=== PATIENT | female | born 1955 | race Caucasian/White ===

== ENCOUNTER 2018-04-10 11:28 | Inpatient (IN) ==
[2018-04-10] MEDS ORDERED: Ringers Solution, Lactated 1,000 ML IVC SCH (12:00)
--- NOTE | 2018-04-10 12:44 | History & Physical Report ---
Date of Encounter: 04/10/18 Time of Encounter: 12:35 24 Hour HP Update - Instructions Instructions: If the History and Physical is less than 30 days old and was completed prior to A.M. admission and or procedure and has NOT been updated on calendar day of procedure please complete this update prior to performing procedure. - Update Patient reports changes in Medical Condition: No Changes in examination, assessment, or condition: No Changes in Medication: No Preop tests/diagnostics Reviewed: Yes Surgery Remains Indicated: Yes Consent for Planned Operative Procedure(s) Verified: Yes - Attending Attestation proceed says she is ready for surgery a little nervous. 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 reviewed procedure, risks vs benefits potential complications and consequences of surgery and her condition. no guarantees made as to the outcome. proceed as planned.
[2018-04-10] MEDS ORDERED: Famotidine 20 MG/2 ML VIAL IVP ONE (12:57)
[2018-04-10] MEDS ORDERED: cloNIDine HCl 0.1 MG TABLET PO ONE ×2 (12:57→17:44)
[2018-04-10] MEDS ORDERED: Pregabalin 75 MG CAPSULE PO ONE (12:58)
[2018-04-10] MEDS ORDERED: Acetaminophen IV 1,000 MG/100 ML INFUS..BTL IVPB ONE ×2 (12:58→18:20)
--- NOTE | 2018-04-10 13:03 | Anesthesia Evaluation PreOp ---
Date of Encounter: 04/10/18 Time of Encounter: 13:01 - Past History Planned Operation: R-ankle fusion, bone harvest, contracture release Cardiac History: CHF (hospitalized for exacerbaton x 1 [2014]), HTN Pulmonary History: Former smoker (quit 2010), Asthma (Probable RAD, Hx recurrent bRonchitis), NANCY Dx (probable but undiagnosed) MANAGER LEASING History: Other (Anxiety/Depression/Migraines, Fibromyalgia, Sural neuropathy) Other Medical History: Renal (neurogenic bladder), Diabetes Type II, Thyroid, GERD, Other (IBS) Anesthesia History: No Prior Anesthetic Complications, Past Anesthesia (L-foot surgery, Appy, Thyroid surgery, T&A,) Alcohol Use: none Drug use: none Medications and Allergies Cholecalciferol (D-3) [Vitamin D] 1,000 unit PO DAILY 04/10/18 [History] Cyclobenzaprine HCl 5 mg PO TID PRN 04/10/18 [History] Gabapentin [Neurontin] 300 mg PO TID PRN 04/10/18 [History] HYDROcodone/Acet 5/325 mg [[place] 5-325 mg] 1 tab PO BID PRN 04/10/18 [History] Levothyroxine [Synthroid] 100 mcg PO 0630 04/10/18 [History] Lisinopril-HCTZ 20-12.5 [Prinzide 20-12.5] 1 tab PO DAILY 04/10/18 [History] Metformin HCl 500 mg PO BID 04/10/18 [History] Omeprazole/Sodium Bicarbonate [Zegerid Otc 20-1,100 mg Cap] 1 cap PO DAILY PRN 04/10/18 [History] Oxybutynin [Ditropan] 5 mg PO QID 04/10/18 [History] clonazePAM [Clonazepam] 0.5 mg PO BID PRN 04/10/18 [History] Allergy/AdvReac Type Severity Reaction Status Date / Time acetaminophen [From Percocet] Allergy Vomiting Verified 02/05/18 13:58 aspirin Allergy Swelling Verified 04/10/18 12:56 of Lip/Tongue/Throat clarithromycin [From Biaxin] Allergy Hives Verified 04/10/18 12:56 Oxycodone [From Percocet] Allergy Vomiting Verified 02/05/18 13:58 Penicillins [PCN] Allergy Blister Verified 04/10/18 12:56 Sulfa (Sulfonamide Allergy Hives Verified 04/10/18 12:56 Antibiotics) - Meds/Allergy Pre-op Review Medications Reviewed: Yes Allergies Reviewed: Yes Beta Blockers on Current Med List: No Anesthesia Results - Labs Laboratory Tests 03/31/18 03/31/18 03/31/18 10:55 10:55 10:55 WBC 10.2 Hgb 14.7 Hct 45.3 H Plt Count 252 Sodium 140 Potassium 3.8 Chloride 101 Carbon Dioxide 29 BUN 20 Est GFR (Non-Af Amer) > 60 Glucose 128 H Est Mean Plasma Glucose 131 Hemoglobin A1c 6.2 H Anesthesia Exam O2 Sat Height 1.7 m Height 1.7 m Height 1.7 m Weight 181.437 kg Weight 181.437 kg Weight 181.437 kg O2 Sat by Pulse Oximetry 95 Vital Signs Temp Pulse Resp BP Pulse Ox 97.9 F 94 18 179/86 95 04/10/18 11:56 04/10/18 11:56 04/10/18 11:56 04/10/18 11:56 04/10/18 11:56 Height: 5'7" Weight: 400# BMI = 62.6 NPO (# of Hours): MNoc - HEENT Pupil (Motor): Pupils equal, EOMI Mallampati: III Teeth: Poor dentition Oral Opening: Greater than 3 - MANAGER LEASING LOC: Oriented MANAGER LEASING Motor: Normal RUE, Normal LUE, Normal LLE, Normal Face, Deficit RLE MANAGER LEASING Sensory: Normal: RUE, LUE, LLE, Face, Deficit: RLE - Cardiac Rhythm: Regular Murmur: None - Pulmonary Breath Sounds: bilateral Clear (dimished ) Respiratory Effort: Symmetrical Anesthesia Assess/Plan ASA Score: 4 (Super MO/BMI >62, HTN, DM, Anxiety/Depression/Fibromyalgia) Modified Jose Luis Scale for Level of Consciousness: Cooperative, oriented, and tranquil Anesthetic Plan: General Monitoring Plan: Standard Monitors Recovery Plan: PACU Anes Supervising Prov Stmt: PT seen/evaluated, R&B discussed, questions answered and consent obtained. Thuan Perez MD
[2018-04-10] MEDS ORDERED: *HR* FentaNYL (PF) 100 MCG/2 ML VIAL ONE (13:23)
[2018-04-10] MEDS ORDERED: *HR* Propofol 200 MG/20 ML VIAL IVP ONE ×2 (13:23→16:51)
[2018-04-10] MEDS ORDERED: *HR* Midazolam HCl 2 MG/2 ML VIAL ONE (13:23)
[2018-04-10] MEDS ORDERED: Ondansetron 4 MG/2 ML VIAL ONE (13:25)
[2018-04-10] MEDS ORDERED: Lidocaine -MPF 2% 2 ML VIAL ONE (13:25)
[2018-04-10] MEDS ORDERED: Dexamethasone 4 MG/ML VIAL ONE (13:25)
[2018-04-10] MEDS ORDERED: ROPIVACAINE HCL/PF 0.5% 30 ML VIAL ONE (13:33)
[2018-04-10] MEDS ORDERED: Tetracaine/PF 20 MG/2 ML AMPUL ONE (13:33)
[2018-04-10] MEDS ORDERED: Bupivacaine/Clonidine Syringe 1 EACH SYRINGE ONE (13:33)
[2018-04-10] MEDS ORDERED: Bupivacaine/EPI 1:200k 0.25%PF 30 ML VIAL ONE (13:42)
[2018-04-10] MEDS ORDERED: *HR* HYDROmorphone (PF) 1 MG/ML SYRINGE IVP PRN ×3 (13:44→18:20)
[2018-04-10] MEDS ORDERED: Ondansetron 4 MG/2 ML VIAL IVP ONE ×2 (13:44→18:20)
[2018-04-10] MEDS ORDERED: *HR* HYDROmorphone 2 MG TABLET PO PRN (13:44)
[2018-04-10] MEDS ORDERED: Clindamycin 900 MG/50 ML 900 MG/50 ML IV.SOLN IVPB ONE (13:55)
[2018-04-10] MEDS ORDERED: *HR* PHENYLEPHRINE 1,000 MCG/10 ML SYRINGE IVP ONE (14:01)
[2018-04-10] MEDS ORDERED: EPHEDrine 50 MG/ML VIAL ONE (14:37)
--- NOTE | 2018-04-10 15:12 | Anesthesia Procedures ---
Date of Encounter: 04/10/18 Time of Encounter: 13:50 Procedures: Anesthesia - Nerve Block Procedure Date: 04/10/18 Time: 13:50 Allergies/Adv Reactions: Allergies reviewed. Refer to Allergy List. Pre-op Diagnosis: R Ankle/Foot Arthritis/Deformity Surgical Procedure: R Ankle Fusion, Bone [place], Contracture Relase Checklist: Correct Patient Identifier, Correct procedure, History checked Correct side: Right Blood Thinner: No Monitor Applied: EKG, BP, Pulse Oximetry Supplemental Oxygen via Nasal Cannula (L/min): 2 Sedation: Versed (mg): 2 Sedation: Fentanyl (mcg): 100 Indication: Post Op Analgesia Pre-op Neuro Deficits: No Block Type: Popliteal, Other (Saphenous) Catheter placed: No Sterile Technique: Yes Ultrasound used: Yes Anatomy identified: Yes Visual spread of Local: Yes Neuro Stimulation: Yes Nerve Stimulator Range: 0.2 - 0.4 mA Blood on Needle Aspiration: No Smooth Injection of Local: Yes Pain with Injection of Local: No Prep: Chlorhexadine Needle: 21 x 100 mm Stimuplex Local: 0.25% Bupivicaine w/Clonidine 20 mcg/cc (20mL for Superficial Saphenous), Ropivacaine (30mL 0.5% Ropivacaine with 8mg of decadron and 20mg Tetracaine) Number of Attempts: 1 Complications: None/effective block Vitals: Vital Signs/O2 Sat/Glucose, Most Recent Temp Pulse Resp BP Pulse Ox 97.9 F 85 18 181/93 98 04/10/18 11:56 04/10/18 13:43 04/10/18 11:56 04/10/18 13:43 04/10/18 13:43 Blood Glucose* 122
[2018-04-10] MEDS ORDERED: clonazePAM 0.5 MG TABLET PO PRN ×2 (16:51→18:20)
[2018-04-10] MEDS ORDERED: *HR* OxyCODONE/APAP 5/325 TABLET PO PRN ×2 (16:52→18:20)
[2018-04-10] MEDS ORDERED: Ondansetron 4 MG/2 ML VIAL IVP PRN ×2 (16:55→18:20)
[2018-04-10] MEDS ORDERED: *HR* Metformin 500 MG TABLET PO SCH (17:00)
[2018-04-10] MEDS ORDERED: Dextrose Gel 15 GM/37.5 ML TUBE PO PRN ×4 (17:01→18:20)
[2018-04-10] MEDS ORDERED: *HR* Dextrose 50 % in Water (Syg) 50 ML SYRINGE IVP PRN ×2 (17:01→18:20)
[2018-04-10] MEDS ORDERED: D5% in Water 1,000 ML IVC PRN ×3 (17:01→20:20)
[2018-04-10] MEDS ORDERED: *HR* Labetalol 20 MG/4 ML SYRINGE IVP ONE (17:46)
[2018-04-10] MEDS ORDERED: cloNIDine HCl 0.1 MG TABLET ONE (17:47)
[2018-04-10] MEDS: *HR* Labetalol 20 MG/4 ML SYRINGE IVP PRN ×2 (17:48→17:55)
--- NOTE | 2018-04-10 19:05 | Anesthesia Evaluation Post Op ---
Date of Encounter: 04/10/18 Time of Encounter: 18:10 - Vital Signs Vital Signs: Vital Signs Temp Pulse Resp BP Pulse Ox 04/10/18 18:04 97.8 F 79 16 148/86 96 04/10/18 17:54 78 18 164/96 94 04/10/18 17:44 95 18 169/93 97 04/10/18 17:34 97.8 F 112 18 160/87 97 04/10/18 17:24 98 18 157/88 94 04/10/18 17:14 98 18 146/87 98 04/10/18 17:04 97.5 F L 103 18 173/83 99 04/10/18 13:43 85 181/93 98 04/10/18 11:56 97.9 F 94 18 179/86 95 Intake and Output 04/10/18 04/10/18 04/10/18 07:59 15:59 23:59 Output Total 250 / 250 Balance -250 / -250 Output: Estimated Blood Loss 250 / 250 Other: Weight 181.437 kg Blood Glucose* 122 139 Patient Weight 04/10/18 23:59 Weight 181.437 kg - Lungs Lungs: Clear Ascult./Percussion - Airway Airway: Non-obstructed - Cardiovascular Regular Rate - Mental Status Mental Status: Alert & Oriented, Answers Appropriately - Pain Pain Scale: 0 Pain Scale used: Numeric (1 - 10) - Nausea Vomiting Nausea Vomiting: Not Present - Hydration Hydration: Ice chips - Discharge PostOp Status: Transfer Patient to floor Anes Supervising Prov Stmt: PT seen/evaluated, VSS And has met criteria for discharge to floor. - MD Ana
[2018-04-10] MEDS: *HR* OxyCODONE Immed Rel 5 MG TABLET PO PRN (20:06)
[2018-04-10] MEDS: Gabapentin 300 MG CAPSULE PO SCH (20:06)
[2018-04-10] MEDS: Ringers Solution, Lactated 1,000 ML IVC SCH (20:07)
[2018-04-10] MEDS: Insulin LISPRO 300 UNITS/3 ML VIAL SQ SCH (20:53)
[2018-04-10] MEDS ORDERED: Gabapentin 300 MG CAPSULE PO SCH (21:00)
--- NOTE | 2018-04-10 21:31 | Operative Note ---
Date of procedure: 04/10/18 Pre-op diagnosis: Acquired deformity right foot/ankle Post-op diagnosis: same Procedure: Right ankle arthrodesis subtalar joint arthrodesis synovectomy Implants: Biomet Mcclure 11mm x 180mm intramedullary nail Complications: none Anesthesia: GETA Local Anesthetics: 0.25% Sensorcaine HCL with Epinephrine 1:200,000 SubQ (cc) Surgeon: Kolby Scott Was there an therapeutic assistant present: No Estimated blood loss (cc): 250 Specimen: none Condition: stable Disposition: PACU Procedure in Detail: Indications: 63 year old female with chronic right rigid foot/ankle deformity and inability to walk on the extremity due to the position of her right foot/ankle. Nature the above procedures, risks first benefits potential complications consequences surgery and her condition discussed at length. No guarantees were made as to the outcome of her functionality. All of her questions were answered and the informed consent was signed. Patient was taken from preoperative holding area and operating room placed on operating room table in the supine position. The right lower extremity was scrubbed prepped and draped in the usual sterile fashion. 0.25% Marcaine with epinephrine was injec ijeoma into the patient's right lower extremity. A tourniquet was applied but not inflated during the procedure. The following procedures then began. Right ankle arthrodesis, subtalar joint arthrodesis, right ankle synovectomy. Attention was directed to the lateral aspect of the patient's right ankle are #15 blade was used to make an incision over the fibula and the skin incision was deepened down to the level of the fibula bone which was prominent and an area of pain for the patient. A sagittal saw was utilized to resect the distal 5 cm of the fibula. Hypertrophied synovial tissue surrounding the anterior and lateral aspect of the right ankle was identified and excised sharply using a #15 blade. After excising the synovial tissue, the soft tissue was freed from the lateral and anterior aspect of the tibia and talus exposing the ankle joint which had a rigid varus deformity. Osteophytes across the anterior tibia and lateral ankle were removed using the ronjeur. The incision on the lateral aspect of the ankle was lengthened to #15 blade exposing the subtalar joint. The subtalar joint ligaments were released and access was gained the subtalar joint. Next, using a combination of the curettes, osteotomes, flexible chisel and rotary bur as well as ronjeur the cartilage was removed from the subtalar joint surfaces until there was bleeding subchondral bone and normal sterile saline was used to flush the joint surfaces and surgical site. The sagittal saw blade was used to make a wedge cut in the tibiotalar joint and the rigid deformity was able to be reduced. Bleeding subchondral bone without cartilage was present at the tibiotalar fusion zone. A drill was used to fenestrate the joint surfaces. With the joint surfaces adequately prepped the talus was medialized and both the tibiotalar joint and subtalar joint were held in a neutral position and temporarily pinned. The deformity was reduced and the foot in good alignment to the leg. Next using standard technique a Biomet Mcclure intramedullary nail 11 mm x 180 mm was utilized across the tibiotalar and subtalar joints for arthrodesis. External and internal compression was utilized. Excellent compression and apposition was noted on C-arm as well as clinically across the fusion zones. Adequate hemostasis was felt to be present and the deep and subcutaneous tissues were closed with 0-Vicryl and skin reapproximated using a combination of rony and 0-Prolene. Postoperative bandaging included Xeroform, 4 x 4 gauze Kerlix and the patient was placed in an adequately padded posterior splint. Patient tolerated the anesthesia and the procedure well and was escorted the recovery room with vital signs stable and vascular status intact to the right foot noted by instant capillary refill time to all digits of the right foot.
[2018-04-11] MEDS ORDERED: Clindamycin 900 MG/50 ML 900 MG/50 ML IV.SOLN IVPB SCH
[2018-04-11] MEDS: *HR* OxyCODONE Immed Rel 5 MG TABLET PO PRN ×5 (00:03→21:27)
[2018-04-11] MEDS: Clindamycin 900 MG/50 ML 900 MG/50 ML IV.SOLN IVPB SCH ×3 (00:03→17:13)
[2018-04-11] MEDS: *HR* Enoxaparin 40 MG/0.4 ML SYRINGE SQ SCH (05:45)
[2018-04-11] MEDS ORDERED: *HR* Enoxaparin 40 MG/0.4 ML SYRINGE SQ SCH (06:00)
[2018-04-11] MEDS: Insulin LISPRO 300 UNITS/3 ML VIAL SQ SCH ×4 (08:06→21:28)
[2018-04-11] MEDS: Gabapentin 300 MG CAPSULE PO SCH ×3 (08:47→21:27)
[2018-04-11] MEDS: *HR* Metformin 500 MG TABLET PO SCH ×2 (08:47→17:13)
[2018-04-11] MEDS: Cholecalciferol (D-3) 1,000 UNIT TABLET PO SCH (08:48)
[2018-04-11] MEDS: Lisinopril-HCTZ 20-12.5mg TABLET PO SCH (08:48)
--- NOTE | 2018-04-11 08:49 | Podiatry Progress Note ---
Date of Encounter: 04/11/18 Time of Encounter: 08:44 - Assessment and Plan (1) Equinovarus acquired deformity Current Visit: Yes Status: Acute TTC fusion completed 04/10/18 to RLE. Patient reports pain relieved with pain medication. RLE dressed with Cast padding, Polar cube in place, covered with Gilmar wraps. Skin warm and dry to digits and above wrapping, no edema noted Patient able to move digits to RLE without complications Denies any overnight events. PT/OT ordered. Patient awaiting ECF placement. Centrifugal Supervisor to set up. 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 Reports pain, relief with pain medication. Pleasant, alert and oriented 3. Objective - Vital Signs Vital Signs: Vital Signs Temp Pulse Resp BP Pulse Ox 04/11/18 07:23 97.4 F L 72 20 118/59 99 04/11/18 03:59 97.6 F 71 18 136/76 99 04/10/18 23:49 99.0 F 84 18 126/85 97 04/10/18 21:56 99.3 F 82 16 122/74 97 04/10/18 20:51 99.3 F 84 16 141/71 94 04/10/18 19:47 98.8 F 96 18 128/73 96 04/10/18 18:50 97.6 F 83 18 167/96 95 04/10/18 18:20 97.4 F L 76 18 151/71 95 04/10/18 18:04 97.8 F 79 16 148/86 96 04/10/18 17:54 78 18 164/96 94 04/10/18 17:44 95 18 169/93 97 04/10/18 17:34 97.8 F 112 18 160/87 97 04/10/18 17:24 98 18 157/88 94 04/10/18 17:14 98 18 146/87 98 04/10/18 17:04 97.5 F L 103 18 173/83 99 04/10/18 13:43 85 181/93 98 04/10/18 11:56 97.9 F 94 18 179/86 95 Intake and Output 04/10/18 04/11/18 04/11/18 23:59 07:59 15:59 Intake Total 50 / 50 Output Total 550 / 550 Balance -550 / -550 50 / 50 Intake: IV Fluids 50 / 50 Cleocin Premix 900 MG/50 ML 900 50 / 50 mg In 50 ml @ 50 mls/hr IVPB Q8HR [facility] Rx#:[id number] Output: Urine 300 / 300 Estimated Blood Loss 250 / 250 Other: # Voids 1 1 # Urine Diapers 1 Blood Glucose* 243 138 - Exam Exam: Constitiutional: Alert and oriented x 3. Morbidly obese Vascular: 2/4 DP/PT left, CFT <3 sec to all digits, warm to warm from tibia to toes left, no edema noted to bilateral lower extremities. Neurologic: Sensation to touch bilaterally, normal plantar response left, Normal position sense dorsiflexion/plantar flexion bilaterally Dermatologic: Skin W/D/I left, RLE dressed with Cast padding, Polar cube in place, covered with Gilmar wraps skin warm and dry to digits in above wrapping, no edema noted Musculoskeletal: 5/5 muscle strength and normal tone left. - Lab Labs: Abnormal lab results POC Glucose 122 mg/dL (70-99) H 04/10/18 11:53 Consult Discharge Plan - Plan Referrals: Dayne Lewis DO [Primary Care Provider] - Kolby Scott DPM [Partnered Physician] -
[2018-04-11] MEDS ORDERED: Cholecalciferol (D-3) 1,000 UNIT TABLET PO SCH (09:00)
[2018-04-11] MEDS ORDERED: Lisinopril-HCTZ 20-12.5mg TABLET PO SCH (09:00)
--- NOTE | 2018-04-12 00:10 | Podiatry Progress Note ---
Date of Encounter: 04/11/18 Time of Encounter: 07:45 Subjective Interval history: S: 1 day s/p tibiotalocalcaneal arthrodesis and synovectomy right lower extremity. Patient reports pain controlled with medication. Sitting up in bed. Says she did accidentally put weight on the right foot today. She says she knows she is not supposed to. She has voided. Denies feeling like she experienced a fever, chills, nausea or vomiting, shortness of breath or chest pain. O: well developed obese female in no acute distress CFT < 3 sec x 5 digits right foot. right foot is warm to touch. patient can flex and extend digits of the right foot. reports sensation intact to touch at the level of the right foot digits. posterior splint clean, dry and intact. No strikethrough. good alignment of foot to leg. A: Acquired deformity right foot/ankle 1 day s/p right tibiotalocalcaneal arthrodesis-doing well, pain controlled. P: discussed surgical procedure and course of recovery with patient. remain non-weight bearing right lower extremity awaiting ECF placement leave posterior splint and bandage clean, dry and intact. Ice and elevate right LE. DVT ppx with lovenox 40mg subq Objective - Vital Signs Vital Signs: Vital Signs Temp Pulse Resp BP Pulse Ox 04/11/18 23:33 98.1 F 95 16 114/72 92 04/11/18 18:58 97.6 F 101 16 118/54 90 04/11/18 15:28 97.7 F 88 18 131/78 98 04/11/18 11:04 97.3 F L 69 18 131/93 99 04/11/18 07:23 97.4 F L 72 20 118/59 99 04/11/18 03:59 97.6 F 71 18 136/76 99 Intake and Output 04/11/18 04/11/18 04/12/18 15:59 23:59 07:59 Intake Total 50 / 50 120 / 120 Output Total 100 / 100 150 / 150 Balance -50 / -50 -30 / -30 Intake: IV Fluids 50 / 50 Cleocin Premix 900 MG/50 ML 900 50 / 50 mg In 50 ml @ 50 mls/hr IVPB Q8HR [facility] Rx#:[id number] Oral 120 / 120 Output: Urine 100 / 100 150 / 150 Other: Meal Dinner Percent of Meal Consumed 60% # Voids 1 1 Blood Glucose* 103 144 - Lab Labs: Abnormal lab results POC Glucose 144 mg/dL (70-99) H 04/11/18 20:25 Consult Discharge Plan - Plan Referrals: Kolby Scott DPM [Partnered Physician] - Dayne Lewis DO [Primary Care Provider] -
--- NOTE | 2018-04-12 00:29 | Physician Discharge Referral ---
ExtendedCare Referral Info Transfer To: extended care facility Provider in Charge: Kolby Scott Provider in Charge after Transfer: PCP Expected Duration of Placement: 8 weeks Prognosis: Fair Aware of Diagnosis: Patient, Family Aware of Prognosis: Patient, Family - Transfer Medications Prescriptions: HYDROcodone/Acet 5/325 mg [[place] 5-325 mg] 1 tab PO Q4H PRN 5 Days #30 tablet PRN Reason: Pain Home Medications: Cholecalciferol (D-3) [Vitamin D] 1,000 unit PO DAILY 04/10/18 [History] Cyclobenzaprine HCl 5 mg PO TID PRN 04/10/18 [History] Gabapentin [Neurontin] 300 mg PO TID PRN 04/10/18 [History] Levothyroxine [Synthroid] 100 mcg PO 0630 04/10/18 [History] Lisinopril-HCTZ 20-12.5 [Prinzide 20-12.5] 1 tab PO DAILY 04/10/18 [History] Metformin HCl 500 mg PO BID 04/10/18 [History] Omeprazole/Sodium Bicarbonate [Zegerid Otc 20-1,100 mg Cap] 1 cap PO DAILY PRN 04/10/18 [History] Oxybutynin [Ditropan] 5 mg PO QID 04/10/18 [History] clonazePAM [Clonazepam] 0.5 mg PO BID PRN 04/10/18 [History] Enoxaparin [Lovenox] 40 mg SQ 0600 syringe 04/12/18 [Rx] HYDROcodone/Acet 5/325 mg [[place] 5-325 mg] 1 tab PO Q4H PRN 5 Days #30 tablet 04/12/18 [Rx] Allergies/Adverse Reactions: Allergy/AdvReac Type Severity Reaction Status Date / Time acetaminophen [From Percocet] Allergy Vomiting Verified 02/05/18 13:58 aspirin Allergy Swelling Verified 04/10/18 12:56 of Lip/Tongue/Throat clarithromycin [From Biaxin] Allergy Hives Verified 04/10/18 12:56 Oxycodone [From Percocet] Allergy Vomiting Verified 02/05/18 13:58 Penicillins [PCN] Allergy Blister Verified 04/10/18 12:56 Sulfa (Sulfonamide Allergy Hives Verified 04/10/18 12:56 Antibiotics) - Respiratory Orders Smoking Cessation: Smoking cessation has been advised. For more information, call the [place] Tobacco Quit Line at 9-540-GJNM-NOW. - Mobility Orders Other (OOB to chair with assistance. non-weight bearing on the right lower extremity.) - Rehabiliation Orders Rehab Potential: Fair Other: Non-weight bearing right lower extremity. - Treatments List/Other: Leave dressing and posterior splint clean, dry and intact. Do not remove. Do not get bandage wet. - Diet Orders No Added Salt (NAOMI) CERTIFICATION: I certify that the transfer of the above named patient to an Extended Care Facility is necessary for the continuing treatment of the diagnosis listed. The above information is true and accurate reflection of patient's current condition. Confidential - Redisclosure prohibited without a patient's written consent.
[2018-04-12] MEDS: Clindamycin 900 MG/50 ML 900 MG/50 ML IV.SOLN IVPB SCH (00:32)
[2018-04-12] MEDS: *HR* OxyCODONE Immed Rel 5 MG TABLET PO PRN ×3 (05:32→20:49)
[2018-04-12] MEDS: *HR* Enoxaparin 40 MG/0.4 ML SYRINGE SQ SCH (05:32)
[2018-04-12] MEDS: Insulin LISPRO 300 UNITS/3 ML VIAL SQ SCH ×3 (08:29→17:00)
[2018-04-12] MEDS: Cholecalciferol (D-3) 1,000 UNIT TABLET PO SCH (08:35)
[2018-04-12] MEDS: Gabapentin 300 MG CAPSULE PO SCH ×3 (08:35→20:49)
[2018-04-12] MEDS: *HR* Metformin 500 MG TABLET PO SCH ×2 (08:36→17:54)
[2018-04-12] MEDS: Lisinopril-HCTZ 20-12.5mg TABLET PO SCH (08:36)
--- NOTE | 2018-04-12 10:07 | Podiatry Progress Note ---
Date of Encounter: 04/12/18 Time of Encounter: 09:30 Subjective Interval history: S: 2 days s/p tibiotalocalcaneal arthrodesis and synovectomy right lower extremity. Patient reports pain controlled with medication. Sitting up in bed. Said she got a good night of sleep. Pain did get a little worse at the end of the day yesterday. She says she is doing okay and it feels better elevating the right lower extremity. Denies feeling like she experienced a fever, chills, nausea or vomiting, shortness of breath or chest pain. O: well developed obese female in no acute distress CFT < 3 sec x 5 digits right foot. right foot is warm to touch. patient can flex and extend digits of the right foot. reports sensation intact to touch at the level of the right foot digits. posterior splint clean, dry and intact. No strikethrough. good alignment of foot to leg. A: Acquired deformity right foot/ankle 2 days s/p right tibiotalocalcaneal arthrodesis-doing well, pain controlled. P: remain non-weight bearing right lower extremity awaiting ECF placement leave posterior splint and bandage clean, dry and intact. Ice and elevate right LE. DVT ppx with lovenox 40mg subq Objective - Vital Signs Vital Signs: Vital Signs Temp Pulse Resp BP Pulse Ox 04/12/18 06:57 97.9 F 93 16 144/68 96 04/12/18 03:44 98.3 F 102 16 142/63 92 04/11/18 23:33 98.1 F 95 16 114/72 92 04/11/18 18:58 97.6 F 101 16 118/54 90 04/11/18 15:28 97.7 F 88 18 131/78 98 04/11/18 11:04 97.3 F L 69 18 131/93 99 Intake and Output 04/11/18 04/12/18 04/12/18 23:59 07:59 15:59 Intake Total 170 / 170 360 / 360 Output Total 150 / 150 Balance 20 / 20 360 / 360 Intake: IV Fluids 50 / 50 Cleocin Premix 900 MG/50 ML 900 50 / 50 mg In 50 ml @ 50 mls/hr IVPB Q8HR [facility] Rx#:[id number] Oral 120 / 120 360 / 360 Output: Urine 150 / 150 Other: Meal Dinner Breakfast Percent of Meal Consumed 60% 100% # Voids 1 1 Weight 168.3 kg Blood Glucose* 144 118 Patient Weight 04/12/18 23:59 Weight 168.3 kg - Lab Labs: Abnormal lab results POC Glucose 118 mg/dL (70-99) H 04/12/18 06:59 Consult Discharge Plan - Plan Referrals: Kolby Scott DPM [Partnered Physician] - Dayne Lewis DO [Primary Care Provider] -
[2018-04-13] MEDS: Insulin LISPRO 300 UNITS/3 ML VIAL SQ SCH ×5 (01:23→22:43)
[2018-04-13] MEDS: *HR* OxyCODONE Immed Rel 5 MG TABLET PO PRN ×2 (06:21→19:58)
[2018-04-13] MEDS: *HR* Enoxaparin 40 MG/0.4 ML SYRINGE SQ SCH (06:21)
[2018-04-13] MEDS: Lisinopril-HCTZ 20-12.5mg TABLET PO SCH (08:41)
[2018-04-13] MEDS: Cholecalciferol (D-3) 1,000 UNIT TABLET PO SCH (08:41)
[2018-04-13] MEDS: *HR* Metformin 500 MG TABLET PO SCH ×2 (08:41→17:23)
[2018-04-13] MEDS: Gabapentin 300 MG CAPSULE PO SCH ×3 (08:41→19:58)
[2018-04-14] MEDS: *HR* OxyCODONE Immed Rel 5 MG TABLET PO PRN ×2 (03:04→14:35)
[2018-04-14] MEDS: *HR* Enoxaparin 40 MG/0.4 ML SYRINGE SQ SCH (06:41)
[2018-04-14] MEDS: Insulin LISPRO 300 UNITS/3 ML VIAL SQ SCH ×4 (08:32→21:10)
[2018-04-14] MEDS: Gabapentin 300 MG CAPSULE PO SCH ×3 (08:43→20:40)
[2018-04-14] MEDS: *HR* Metformin 500 MG TABLET PO SCH ×2 (08:43→17:17)
[2018-04-14] MEDS: Cholecalciferol (D-3) 1,000 UNIT TABLET PO SCH (08:43)
[2018-04-14] MEDS: Lisinopril-HCTZ 20-12.5mg TABLET PO SCH (08:43)
--- NOTE | 2018-04-14 14:16 | Podiatry Progress Note ---
Date of Encounter: 04/14/18 Time of Encounter: 12:15 - Assessment and Plan (1) Equinovarus acquired deformity Current Visit: Yes Status: Acute TTC fusion completed 04/10/18 to RLE. Patient reports pain relieved with pain medication. Denies pain when right calf squeezed. RLE dressed with Cast padding, Polar cube in place, covered with Gilmar wraps. No drainage noted. Skin warm and dry to digits and above wrapping, no edema noted Patient able to move digits to RLE without complications Denies any overnight events. Patient reports nausea, medication on profile, reports relief with medication. Declines at this time. Right lower extremity non-weightbearing. PT/OT following. Elevate right lower extremity when non-ambulatory. Patient awaiting ECF placement. Unit Technician working on this. 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 Reports pain, relief with pain medication. Also reports nausea, declines need for medication this time. Pleasant, alert and oriented 3. Objective - Vital Signs Vital Signs: Vital Signs Temp Pulse Resp BP Pulse Ox 04/14/18 10:40 98.8 F 97 16 133/80 96 04/14/18 07:08 97.9 F 91 15 156/72 96 04/14/18 03:00 98.4 F 96 20 138/77 94 04/13/18 22:46 98.9 F 109 20 134/77 94 04/13/18 18:31 98.6 F 99 20 131/87 95 04/13/18 15:14 98.5 F 95 20 148/86 95 Intake and Output 04/13/18 04/14/18 04/14/18 23:59 07:59 15:59 Intake Total 990 / 990 0 / 0 590 / 590 Output Total 200 / 200 200 / 200 550 / 550 Balance 790 / 790 -200 / -200 40 / 40 Intake: Oral 990 / 990 0 / 0 390 / 390 Free Water 200 / 200 Output: Urine 200 / 200 200 / 200 550 / 550 Other: Meal Dinner Lunch Percent of Meal Consumed 100% 50% # Voids 1 # Urine Diapers 1 1 Weight 163.3 kg Blood Glucose* 138 147 Patient Weight 04/14/18 23:59 Weight 163.3 kg - Exam Exam: Constitiutional: Alert and oriented x 3. Morbidly obese Vascular: 2/4 DP/PT left, CFT <3 sec to all digits, warm to warm from tibia to toes left, no edema noted to bilateral lower extremities. Neurologic: Sensation to touch bilaterally, normal plantar response left, Normal position sense dorsiflexion/plantar flexion bilaterally Dermatologic: Skin W/D/I left, RLE dressed with Cast padding, Polar cube in place, covered with Gilmar wraps skin warm and dry to digits in above wrapping, no edema noted Musculoskeletal: 5/5 muscle strength and normal tone left. - Lab Labs: Abnormal lab results POC Glucose 138 mg/dL (70-99) H 04/13/18 20:09 Consult Discharge Plan - Plan Referrals: Kolby Scott DPM [Partnered Physician] - Dayne Lewis DO [Primary Care Provider] - Prescriptions: HYDROcodone/Acet 5/325 mg [[place] 5-325 mg] 1 tab PO Q4H PRN 5 Days #30 tablet PRN Reason: Pain
[2018-04-14] MEDS: Ringers Solution, Lactated 1,000 ML IVC SCH ×3 (19:34→19:37)
[2018-04-15] MEDS: *HR* OxyCODONE Immed Rel 5 MG TABLET PO PRN ×3 (02:00→16:57)
[2018-04-15] MEDS: *HR* Enoxaparin 40 MG/0.4 ML SYRINGE SQ SCH (06:11)
[2018-04-15] MEDS: Insulin LISPRO 300 UNITS/3 ML VIAL SQ SCH ×3 (07:55→16:18)
[2018-04-15] MEDS: Gabapentin 300 MG CAPSULE PO SCH ×2 (09:53→16:32)
[2018-04-15] MEDS: *HR* Metformin 500 MG TABLET PO SCH ×2 (09:53→16:32)
[2018-04-15] MEDS: Lisinopril-HCTZ 20-12.5mg TABLET PO SCH (09:53)
[2018-04-15] MEDS: Cholecalciferol (D-3) 1,000 UNIT TABLET PO SCH (09:54)
[2018-04-15 11:37] VITALS: BP 106/66
--- NOTE | 2018-04-15 14:16 | Discharge Summary ---
Date of Encounter: 04/15/18 Time of Encounter: 14:14 - NOTES TO OUTPATIENT PROVIDER Notes to Outpatient Provider: Follow up with Sheela Mathis CNP in 1 week. 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 Please see operative report for further details. D/ / Constantino Salamanca / Constantino Salamanca Interpreting Provider: Constantino Salamanca - Hospital Course Hospital course: Ms. Martinez is a 63 year old female with equinus deformity, acquired, who pre sented as an outpatient for a tibiotalocalcaneal arthrodesis and synovectomy of right lower extremity. Patient was admitted to the hospital for PT/OT and ECF placement. Patient without complication during hospital stay. No fever, chills, vomiting, diarrhea, or lethargy/fatigue. Patient had mild episodes of nausea while in patient relieved with medication and pain relieved with medication. Patient being d/c with prescriptions for antiemetics and opoids. Out of bed to chair with assistance. Remain non-weightbearing right lower extremity. - Time Spent with Patient Total time spent providing and/or coordinating discharge services: 30 minutes - Discharge Medications Prescriptions: HYDROcodone/Acet 5/325 mg [[place] 5-325 mg] 1 tab PO Q4H PRN 5 Days #30 tablet PRN Reason: Pain Home Medications: Cholecalciferol (D-3) [Vitamin D] 1,000 unit PO DAILY 04/10/18 [History] Cyclobenzaprine HCl 5 mg PO TID PRN 04/10/18 [History] Gabapentin [Neurontin] 300 mg PO TID PRN 04/10/18 [History] Levothyroxine [Synthroid] 100 mcg PO 0630 04/10/18 [History] Lisinopril-HCTZ 20-12.5 [Prinzide 20-12.5] 1 tab PO DAILY 04/10/18 [History] Metformin HCl 500 mg PO BID 04/10/18 [History] Omeprazole/Sodium Bicarbonate [Zegerid Otc 20-1,100 mg Cap] 1 cap PO DAILY PRN 04/10/18 [History] Oxybutynin [Ditropan] 5 mg PO QID 04/10/18 [History] clonazePAM [Clonazepam] 0.5 mg PO BID PRN 04/10/18 [History] Enoxaparin [Lovenox] 40 mg SQ 0600 syringe 04/12/18 [Rx] HYDROcodone/Acet 5/325 mg [[place] 5-325 mg] 1 tab PO Q4H PRN 5 Days #30 tablet 04/12/18 [Rx] Allergies/Adverse Reactions: Allergy/AdvReac Type Severity Reaction Status Date / Time acetaminophen [From Percocet] Allergy Vomiting Verified 02/05/18 13:58 aspirin Allergy Swelling Verified 04/10/18 12:56 of Lip/Tongue/Throat clarithromycin [From Biaxin] Allergy Hives Verified 04/10/18 12:56 Oxycodone [From Percocet] Allergy Vomiting Verified 02/05/18 13:58 Penicillins [PCN] Allergy Blister Verified 04/10/18 12:56 Sulfa (Sulfonamide Allergy Hives Verified 04/10/18 12:56 Antibiotics) Date of admission: 04/10/18 22:42 Primary care physician: Dayne Lewis Consults: 04/10/18 16:56 Consult to Physical Therapy [CONS] Routine Comment: Evaluate, develop and implement POC Reason for Consult: non-weight bearing right lower extremity. gait training. evaluate for [facility]. Does patient have active BEDREST order?: No Is patient medically & hemodynamically stable?: Yes 04/10/18 16:58 Consult to Switchboard Operator Supervisor [CONS] Routine Reason for SW Consult: [facility] 04/11/18 08:41 OT [Consult to Occupational Therapy] [CONS] Routine Comment: Evaluate, develop and implement POC Reason for Consult: Right foot TTC fusion Does patient have active BEDREST order?: Yes Is patient medically & hemodynamically stable?: Yes Discharging clinician: Sharifa Mathis Anticipated date of discharge: 04/15/18 - Patient Status Disposition: Transfer SNF Condition: Fair Overall status at discharge: patient is not back to baseline - Discharge Instructions Follow Up With: Kolby Scott DPM [Partnered Physician] - 04/25/18 10:55 am Sharifa Mathis [Advanced Practice Nurse] - 04/18/18 10:15 am (dressing change appt.) Additional Instructions: Remain non-weightbearing of RLE. Follow up in office with ARUNA Díaz 5-7 days for dressing change. Elevate RLE when non-ambulatory. - Diet and Activity Activity: as per physical therapy Diet: advance to your usual diet, diabetic diet - VTE Deep Vein Thrombosis/Pulmonary Embolism Present on Admission: No
== END 2018-04-15 17:00 | DRG 493 ==
LOC: SAMDAY 11:28 → 3NENU 18:21
PROVIDERS: ADMIT Podiatrist; ATTEND Podiatrist